=== PATIENT | male | born 1965 | race Caucasian/White ===

== ENCOUNTER 2017-05-16 08:58 | Emergency (ER) | payer OTHER ==
[~2017-05-16] VITALS: Ht 182.9 cm; Wt 97.5 kg
[2017-05-16 09:06] VITALS: BP 144/93
[2017-05-16] MEDS ORDERED: HYDROXYZINE HCL25 M1 PO (09:29)
[2017-05-16] MEDS ORDERED: PREDNISONE 20 M20 MG PO (09:29)
[2017-05-16] MEDS ORDERED: ZYRTEC10 M4 PO (09:41)
== END 2017-05-16 09:44 | disposition home or self-care (01) ==
LOC: ER 08:58
DX: L25.9 Unspecified contact dermatitis, unspecified cause (principal); Z88.5 Allergy status to narcotic agent

== ENCOUNTER 2017-05-21 07:16 | Emergency (ER) | payer OTHER ==
[~2017-05-21] VITALS: Ht 182.9 cm; Wt 97.5 kg
[~2017-05-21 07:16] MED LIST: HYDROXYZINE HCL25 M1 PO; PREDNISONE 20 M20 MG PO; ZYRTEC10 M4 PO
[2017-05-21] MEDS ORDERED: ALBUTEROL2.5 MG/31 INH (08:11)
[2017-05-21 08:53] VITALS: BP 162/90
== END 2017-05-21 08:53 | disposition home or self-care (01) ==
LOC: ER 07:16
DX: L25.9 Unspecified contact dermatitis, unspecified cause (principal); R06.2 Wheezing; Z88.5 Allergy status to narcotic agent